=== PATIENT | female | born 1945 | race Caucasian/White ===

== ENCOUNTER → 2016-09-13 | Outpatient (CLI) | payer OTHER, MEDICAID ==
[~2016-09-13] MED LIST: AMINOPHYLLINE 25 MG/ML, 10ML ONE; ASPI-496 PO; CARB1TAB2 PO; LOVA40TA2 PO; METO25TA35 PO; REGADENOSON 0.4 MG/5 ML SYRINGE ONE
== END | disposition home or self-care (01) ==
LOC: CFH 08:17
PROVIDERS: ATTEND Internal Medicine Cardiovascular Disease
DX: I25.10 Atherosclerotic heart disease of native coronary artery without angina pectoris (principal); Z95.1 Presence of aortocoronary bypass graft
CPT/HCPCS: 78452; 93017; A9502; J0280; J2785

== ENCOUNTER → 2017-10-03 | Outpatient (CLI) | payer MEDICARE, MEDICAID ==
[~2017-10-03] MED LIST changes: -AMINOPHYLLINE 25 MG/ML, 10ML ONE; -REGADENOSON 0.4 MG/5 ML SYRINGE ONE
== END | disposition home or self-care (01) ==
LOC: CFH 13:58
PROVIDERS: ATTEND Internal Medicine Cardiovascular Disease
DX: I08.2 Rheumatic disorders of both aortic and tricuspid valves (principal); E78.5 Hyperlipidemia, unspecified; I10 Essential (primary) hypertension; F17.200 Nicotine dependence, unspecified, uncomplicated; Z95.1 Presence of aortocoronary bypass graft
CPT/HCPCS: 93306

== ENCOUNTER 2018-10-28 21:32 | Emergency (ER) | payer MEDICARE, MEDICAID, OTHER ==
[~2018-10-28] VITALS: Ht 167.6 cm; Wt 61.0 kg
[2018-10-29 00:29] VITALS: BP 107/60
== END 2018-10-29 00:44 | disposition home or self-care (01) ==
LOC: ED 22:24
DX: N10 Acute pyelonephritis (principal); M54.5 Low back pain; I10 Essential (primary) hypertension; Z95.1 Presence of aortocoronary bypass graft; F17.200 Nicotine dependence, unspecified, uncomplicated
CPT/HCPCS: 36415; 80048; 81001; 82040; 85025; 87077; 87086; 87186; 96372; 99284; J1885

== ENCOUNTER 2018-11-03 11:13 | Emergency (ER) | payer MEDICARE, MEDICAID, OTHER ==
[~2018-11-03] VITALS: Ht 167.6 cm; Wt 61.1 kg
[2018-11-03 16:03] VITALS: BP 132/62
== END 2018-11-03 16:11 | disposition home or self-care (01) ==
LOC: ED 13:46
DX: M54.6 Pain in thoracic spine (principal); R11.2 Nausea with vomiting, unspecified; R06.02 Shortness of breath; R05 Cough; I10 Essential (primary) hypertension; E78.5 Hyperlipidemia, unspecified; F17.210 Nicotine dependence, cigarettes, uncomplicated; Z95.1 Presence of aortocoronary bypass graft; Z90.89 Acquired absence of other organs
CPT/HCPCS: 36415; 71045; 74176; 80053; 81001; 85025; 99284; Q0162